=== PATIENT | female | born 1970 | race Hispanic/Latino ===

== ENCOUNTER 2023-05-12 23:33 | Observation (INO) | payer SELFPAY ==
[2023-05-13 00:05] LABS: #Basophils 0.1 thou/uL (0.0-0.2); #Eosinphils 0.2 thou/uL (0.0-0.7); #Monocytes 0.9 thou/uL (0.11-0.59); #Neutrophils 7.7 thou/uL (1.40-6.50); %Basophils 0.5 % (0.0-1.0); %Eosinophils 1.5 % (0.0-10.0); %Lymphocytes 24.5 % (21.0-51.0); %Monocytes 7.8 % (0.0-10.0); %Neutrophils 65.5 % (42.0-75.0); Hematocrit 38.5 % (36.0-47.0); Hemoglobin 12.9 g/dL (12.0-16.0); Mean Corpuscular HGB CONC 33.5 g/dL (32.0-36.0); Mean Corpuscular Hemoglobin 29.7 pg (27.0-31.0); Mean Corpuscular Volume 88.7 fl (78.0-98.0); Mean Platelet Volume 8.4 fL (7.4-10.4); Platelet Count 366 10x3/uL (130-400); RBC Distribution Width 12.4 % (11.5-14.5); Red Blood Cell (RBC) Count 4.34 mill/uL (4.20-5.40); White Blood Cell (WBC) Count 11.8 10x3/uL (4.8-10.8)
[2023-05-13] MEDS ORDERED: Aspirin 325 MG TAB ONE (00:27)
[2023-05-13 00:28] LABS: ALT (SGPT) 25 U/L (8-55); AST (SGOT) 21 U/L (5-34); Albumin 4.3 g/dL (3.5-5.0); Alkaline Phosphatase 121 U/L (40-110); Anion Gap 13 mmol/L (10-20); BUN (Urea Nitrogen) 18 mg/dL (9.8-20.1); Bilirubin, Total 0.2 mg/dL (0.2-1.2); Calc. Creatinine Clearance 0 mL/min (70-130); Calcium 9.6 mg/dL (7.8-10.44); Carbon Dioxide 27 mmol/L (22-29); Chloride 106 mmol/L (98-107); Estimated GFR 83; Glucose 172 mg/dL (70-105); Potassium 3.6 mmol/L (3.5-5.1); Protein, Total 8.3 g/dL (6.0-8.3); Sodium 142 mmol/L (136-145)
[2023-05-13] MEDS ORDERED: Morphine 2 MG/ML VIAL ONE (00:28)
[2023-05-13 00:34] LABS: Troponin I Less than 0.010 ng/mL (< 0.028)
[2023-05-13 01:18] LABS: Magnesium 1.9 mg/dL (1.6-2.6)
[2023-05-13] MEDS ORDERED: Nitroglycerin 0.4 MG TAB 1 EACH ONE (01:34)
[2023-05-13] MEDS ORDERED: Calcium Carbonate 500 MG ChewTAB PO PRN (03:40)
[2023-05-13] MEDS ORDERED: Ondansetron ODT 4 MG TAB PO PRN (03:40)
[2023-05-13 05:31] LABS: Troponin I Less than 0.010 ng/mL (< 0.028)
[2023-05-13 08:33] LABS: Troponin I Less than 0.010 ng/mL (< 0.028)
[2023-05-13] MEDS ORDERED: Ketorolac Tromethamine 30 MG/ML VIAL IVP PRN (09:08)
[2023-05-13] MEDS ORDERED: Famotidine 20 MG TAB ONE (09:31)
[2023-05-13] MEDS: Famotidine 20 MG TAB PO SCH ×2 (09:35→21:08)
[2023-05-13] MEDS ORDERED: Ketorolac Tromethamine 30 MG/ML VIAL IVP SCH (13:15)
[2023-05-13] MEDS ORDERED: Ketorolac Tromethamine 30 MG/ML VIAL ONE (13:47)
[2023-05-13 16:01] VITALS: BMI 34.2
[2023-05-13] MEDS: Ketorolac Tromethamine 30 MG/ML VIAL IVP SCH (17:25)
[2023-05-13] MEDS: Acetaminophen 325 MG TAB PO PRN (21:09)
[2023-05-14] MEDS: Ketorolac Tromethamine 30 MG/ML VIAL IVP SCH ×3 (00:19→12:07)
[2023-05-14 04:31] LABS: #Basophils 0.1 thou/uL (0.0-0.2); #Eosinphils 0.3 thou/uL (0.0-0.7); #Monocytes 0.7 thou/uL (0.11-0.59); #Neutrophils 6.2 thou/uL (1.40-6.50); %Basophils 0.5 % (0.0-1.0); %Eosinophils 2.3 % (0.0-10.0); %Lymphocytes 33.1 % (21.0-51.0); %Monocytes 6.8 % (0.0-10.0); %Neutrophils 56.9 % (42.0-75.0); Hematocrit 35.5 % (36.0-47.0); Hemoglobin 11.6 g/dL (12.0-16.0); Mean Corpuscular HGB CONC 32.7 g/dL (32.0-36.0); Mean Corpuscular Volume 91.7 fl (78.0-98.0); Mean Platelet Volume 8.6 fL (7.4-10.4); Platelet Count 305 10x3/uL (130-400); RBC Distribution Width 12.6 % (11.5-14.5); Red Blood Cell (RBC) Count 3.87 mill/uL (4.20-5.40); White Blood Cell (WBC) Count 10.9 10x3/uL (4.8-10.8)
[2023-05-14 05:00] LABS: Anion Gap 12 mmol/L (10-20); BUN (Urea Nitrogen) 24 mg/dL (9.8-20.1); Calc. Creatinine Clearance 116 mL/min (70-130); Calcium 8.6 mg/dL (7.8-10.44); Carbon Dioxide 25 mmol/L (22-29); Chloride 108 mmol/L (98-107); Estimated GFR 79; Glucose 122 mg/dL (70-105); Sodium 141 mmol/L (136-145)
[2023-05-14] MEDS: Acetaminophen 325 MG TAB PO PRN (06:26)
[2023-05-14 08:14] VITALS: TEMP 97.5
[2023-05-14] MEDS ORDERED: traMADol HCl 50 MG TAB PO PRN ×2 (08:20)
[2023-05-14] MEDS ORDERED: predniSONE 20 MG TAB PO SCH (08:30)
[2023-05-14] MEDS ORDERED: Lidocaine 4% Patch TD SCH (09:00)
[2023-05-14] MEDS: Famotidine 20 MG TAB PO SCH (09:41)
[2023-05-14 12:10] VITALS: BP 157/100
[2023-05-14] MEDS ORDERED: Transdermal Patch Removal TOP SCH (21:00)
== END 2023-05-14 12:46 | disposition home or self-care (01) ==
LOC: ERS 23:33 → ERHOLD 05-13 02:07 → MERGE 05-13 02:07 → 2SW 05-13 15:02
PROVIDERS: ADMIT Student in an Organized Health Care Education/Training Program; ATTEND Nurse Practitioner Acute Care
DX: R07.9 Chest pain, unspecified (principal); M25.512 Pain in left shoulder; R00.0 Tachycardia, unspecified; R73.9 Hyperglycemia, unspecified
CPT/HCPCS: 36415; 71045; 80048; 80053; 83036; 83735; 83880; 84484; 85025; 85379; 93005; 94760; 96372; 96374; 96375; 96376; G0378; J1650; J1885; J2272; J7512